=== PATIENT | female | born 1945 | race Asian ===

== ENCOUNTER 2017-11-05 11:04 | Outpatient (CLI) | payer MEDICAID, MEDICARE ==
[2017-11-05 12:47] LABS: CALCIUM 9.2 mg/dL (8.5-10.3)
== END 2017-11-05 11:05 ==
LOC: LAB.N 11:04
PROVIDERS: ATTEND Family Medicine
DX: I12.9 Hypertensive chronic kidney disease with stage 1 through stage 4 chronic kidney disease, or unspecified chronic kidney disease (principal); N18.3 Chronic kidney disease, stage 3 (moderate)
CPT/HCPCS: 36415; 80048

== ENCOUNTER 2018-11-17 08:00 | Outpatient (CLI) | payer MEDICARE ==
[2018-11-17 12:12] LABS: BASOPHILS % (AUTO) 0.6 %; EOSINOPHILS # (AUTO) 0.2 10^3/uL (0.0-0.7); EOSINOPHILS % (AUTO) 2.6 %; HGB - HEMOGLOBIN 13.3 g/dL (12.0-16.0); LYMPHOCYTES # (AUTO) 1.2 10^3/uL (1.5-3.5); LYMPHOCYTES % (AUTO) 18.8 %; MEAN CORPUSCULAR HEMOGLOBIN 28.8 pg (27.0-31.0); MEAN CORPUSCULAR HGB CONC 33.2 g/dL (32.0-36.0); MEAN CORPUSCULAR VOLUME 86.8 fL (81.0-99.0); MEAN PLATELET VOLUME 7.5 fL (7.9-10.8); MONOCYTES # (AUTO) 0.5 10^3/uL (0.0-1.0); MONOCYTES % (AUTO) 7.7 %; NEUTROPHILS # (AUTO) 4.4 10^3/uL (1.5-6.6); NEUTROPHILS % (AUTO) 70.3 %; PLT - PLATELET COUNT 232 10^3/uL (130-450); RED BLOOD COUNT 4.61 10^6/uL (4.20-5.40); RED CELL DISTRIBUTION WIDTH 13.5 % (12.0-15.0); WHITE BLOOD COUNT 6.3 x10^3/uL (4.8-10.8)
[2018-11-17 12:20] LABS: ALBUMIN/GLOBULIN RATIO 1.3 (1.0-2.2); ALKALINE PHOSPHATASE 83 IU/L (42-121); ALT ALANINE AMINOTRANSFERASE 20 IU/L (10-60); AST ASPARTATE AMINOTRANSFERASE 25 IU/L (10-42); BILIRUBIN,TOTAL 0.9 mg/dL (0.2-1.0); BUN - BLOOD UREA NITROGEN 21 mg/dL (6-20); CALCIUM 9.4 mg/dL (8.5-10.3); CARBON DIOXIDE - CO2 26 mmol/L (21-32); CHLORIDE 99 mmol/L (101-111); CHOL/HDL RATIO 2.6 (<4.4); CHOLESTEROL 157 mg/dL; GFR - MDRD 54 (>89); GLUCOSE 100 mg/dL (70-100); HDL CHOLESTEROL 60 mg/dL; LDL CHOLESTEROL,CALCULATED 83 mg/dL; LDL/HDL RATIO 1.4 (<4.4); SODIUM 136 mmol/L (135-145); TOTAL PROTEIN 7.2 g/dL (6.7-8.2); VLDL CHOLESTEROL 14 mg/dL
[2018-11-17 12:25] LABS: HB2 TOTAL 14.1 g/dL; HEMOGLOBIN A1C 0.66 g/dL; HEMOGLOBIN A1C % 6.4 % (4.6-6.2)
== END 2018-11-17 23:59 | disposition home or self-care (01) ==
LOC: LAB.N 08:00
PROVIDERS: ATTEND Nurse Practitioner Gerontology
DX: I12.9 Hypertensive chronic kidney disease with stage 1 through stage 4 chronic kidney disease, or unspecified chronic kidney disease (principal); N18.3 Chronic kidney disease, stage 3 (moderate); E78.5 Hyperlipidemia, unspecified; E11.65 Type 2 diabetes mellitus with hyperglycemia; E11.29 Type 2 diabetes mellitus with other diabetic kidney complication
CPT/HCPCS: 36415; 80053; 80061; 83036; 83721; 85025

== ENCOUNTER 2018-12-17 13:53 | Outpatient (CLI) | payer MEDICAID, MEDICARE ==
--- NOTE | 2018-12-18 16:54 | XRAY Report ---
Reason: HIP PAIN,LEFT Procedure Date: 12/17/2018 Accession Number: [id number] / [id number] Procedure: WCP - Hip w/Pelvis 2-3V LT CPT Code: FULL RESULT: EXAM: LEFT HIP RADIOGRAPHY EXAM DATE: 12/17/2018 02:07 PM. CLINICAL HISTORY: Left hip pain. Left groin pain. COMPARISON: None. TECHNIQUE: 2 views. FINDINGS: Bones: No acute fracture or bony lesion. Mild degenerative spurring. Joints: Mild joint space narrowing. Mild degenerative changes of the right hip joint and lower lumbar spine. Soft Tissues: Normal. No soft tissue swelling. IMPRESSION: 1. Mild degenerative changes of the left hip joint. RADIA
== END 2018-12-17 13:54 | disposition home or self-care (01) ==
LOC: DI.WCP 13:53
PROVIDERS: ATTEND Family Medicine
DX: M16.12 Unilateral primary osteoarthritis, left hip (principal)

== ENCOUNTER 2018-12-30 02:05 | Emergency (ER) | payer MEDICARE ==
--- NOTE | 2018-12-30 02:21 | ED Physician Documentation ---
History of Present Illness - Stated complaint Stated Complaint: DIZZY - History obtained from History obtained from: Patient, Family - History of Present Illness Timing: Enter time (01:00) Pain level max: 0 Pain level now: 0 Improved by: lying still Worsened by: movement of head, sitting up - Additonal information Additional information: woke from sleep at home at approximately 1 AM with dizziness. she is unable to further describe her symptom of dizziness (including not being able to describe it as spinning sensation versus lightheadedness or weakness, even when I discuss these as possible descriptors). she denies any other symptoms including headache, nausea, dyspnea, chest pain Review of Systems Constitutional: reports: Reviewed and negative Eyes: reports: Reviewed and negative Ears: reports: Reviewed and negative Cardiac: reports: Reviewed and negative Respiratory: reports: Reviewed and negative GI: reports: Reviewed and negative Neurologic: reports: Reviewed and negative PD PAST MEDICAL HISTORY - Past Medical History Cardiovascular: Hypertension, High cholesterol Endocrine/Autoimmune: Type 2 diabetes - Past Surgical History Past Surgical History: No - Present Medications Home Medications: Ambulatory Orders Medication Instructions Recorded Confirmed Amlodipine Besylate 10 mg PO DAILY 02/16/15 02/16/15 Aspirin 81 mg PO DAILY 02/16/15 02/16/15 Hydrochlorothiazide 25 mg PO DAILY 02/16/15 02/16/15 Indomethacin 25 mg PO DAILY 02/16/15 02/16/15 Losartan [Cozaar] 50 mg PO DAILY 02/16/15 02/16/15 Pravastatin Sodium 40 mg PO DAILY 02/16/15 02/16/15 metFORMIN [Glucophage] 500 mg PO DAILY 02/16/15 02/16/15 predniSONE [Prednisone] 20 mg PO DAILY 3 Days tablet 02/16/15 Meclizine [Antivert] 25 mg PO Q6H PRN #20 tablet 12/30/18 - Allergies Allergies/Adverse Reactions: Allergies Allergy/AdvReac Type Severity Reaction Status Date / Time No Known Drug Allergies Allergy Verified 12/30/18 02:26 - Social History Does the pt smoke?: No Smoking Status: Never smoker Does the pt drink ETOH?: No Does the pt have substance abuse?: No PD ED PE NORMAL - Vitals Vital signs reviewed: Yes - General General: Alert and oriented X 3, No acute distress (NAD at rest. lying still on stretcher, supine. 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, No motor deficit, No sensory deficit, Normal speech Eye Opening: Spontaneous Motor: Obeys Commands Verbal: Oriented GCS Score: 15 Results - Vitals Vitals: Oxygen O2 Source Room air - EKG (time done) No standard instances Rate: Rate (enter#) (60) Rhythm: NSR [place]: Normal Intervals: Normal [place] QRS: LVH Ischemia: Normal ST segments, Q waves (isolated III) - Labs Labs: Microbiology 12/30/18 04:00 Urine Culture - Final Urine,Clean Catch Less Than 10,000 COLONIES/ML UROGENITAL KWASI Laboratory Tests 12/30/18 12/30/18 12/30/18 02:25 02:25 02:25 WBC 9.1 RBC 3.74 L Hgb 10.4 L Hct 33.2 L MCV 88.8 MCH 27.8 MCHC 31.3 L RDW 13.0 Plt Count 310 MPV 8.4 Neut # (Auto) 7.2 H Lymph # (Auto) 1.1 L [place]lier # (Auto) 0.6 Eos # (Auto) 0.1 Baso # (Auto) 0.0 Absolute Nucleated RBC 0.00 Nucleated RBC % 0.0 Sodium 140 Potassium 4.3 Chloride 102 Carbon Dioxide 23 Anion Gap 15.0 H BUN 26 H Creatinine 1.0 Estimated GFR (MDRD) 54 L Glucose 124 H Calcium 9.5 Total Bilirubin 0.8 AST 19 ALT 22 Alkaline Phosphatase 85 Troponin I < 0.04 Total Protein 7.6 Albumin 3.4 Globulin 4.2 Albumin/Globulin Ratio 0.8 L Lipase 37 Urine Color Urine Clarity Urine pH Ur Specific [place] Urine Protein Urine Glucose (UA) Urine Ketones Urine Occult Blood Urine Nitrite Urine Bilirubin Urine Urobilinogen Ur Leukocyte Esterase Urine RBC Urine WBC Ur Squamous Epith Cells Urine Bacteria Ur Microscopic Review Urine Culture Comments 12/30/18 04:00 WBC RBC Hgb Hct MCV MCH MCHC RDW Plt Count MPV Neut # (Auto) Lymph # (Auto) [place]lier # (Auto) Eos # (Auto) Baso # (Auto) Absolute Nucleated RBC Nucleated RBC % Sodium Potassium Chloride Carbon Dioxide Anion Gap BUN Creatinine Estimated GFR (MDRD) Glucose Calcium Total Bilirubin AST ALT Alkaline Phosphatase Troponin I Total Protein Albumin Globulin Albumin/Globulin Ratio Lipase Urine Color YELLOW Urine Clarity CLEAR Urine pH 6.5 Ur Specific [place] <=1.005 Urine Protein NEGATIVE Urine Glucose (UA) NEGATIVE Urine Ketones NEGATIVE Urine Occult Blood NEGATIVE Urine Nitrite NEGATIVE Urine Bilirubin NEGATIVE Urine Urobilinogen 0.2 (NORMAL) Ur Leukocyte Esterase SMALL H Urine RBC None Seen Urine WBC 0-3 Ur Squamous Epith Cells RARE Squamous Urine Bacteria Rare Ur Microscopic Review INDICATED Urine Culture Comments INDICATED PD MEDICAL DECISION MAKING - ED course Complexity details: reviewed results, re-evaluated patient, considered differential, d/w patient, d/w family ED course: on reevaluation, test results d/w patient and family, she reports adequate relief after antivert and is able to converse with eyes open and head movement without apparent recurrence of symptoms Departure - Departure Disposition: 01 Home, Self Care Clinical Impression: Dizziness Condition: Good Health Concerns: dizziness Plan of Treatment: medication for dizziness as needed as prescribed Care Goals: symptom control Assessment: see diagnosis Instructions: ED Dizziness [facility] Follow-Up: Usha Mckeon DO [Primary Care Provider] - Prescriptions: Meclizine [Antivert] 25 mg PO Q6H PRN #20 tablet PRN Reason: Dizziness Discharge Date/Time: 12/30/18 05:15
[2018-12-30] MEDS ORDERED: MECLIZINE 12.5 MG TABLET PO STA (02:47)
[2018-12-30 02:55] LABS: BASOPHILS % (AUTO) 0.2 %; EOSINOPHILS # (AUTO) 0.1 10^3/uL (0.0-0.7); EOSINOPHILS % (AUTO) 1.2 %; HGB - HEMOGLOBIN 10.4 g/dL (12.0-16.0); LYMPHOCYTES # (AUTO) 1.1 10^3/uL (1.5-3.5); LYMPHOCYTES % (AUTO) 12.1 %; MEAN CORPUSCULAR HEMOGLOBIN 27.8 pg (27.0-31.0); MEAN CORPUSCULAR HGB CONC 31.3 g/dL (32.0-36.0); MEAN CORPUSCULAR VOLUME 88.8 fL (81.0-99.0); MEAN PLATELET VOLUME 8.4 fL (7.9-10.8); MONOCYTES # (AUTO) 0.6 10^3/uL (0.0-1.0); MONOCYTES % (AUTO) 6.8 %; NEUTROPHILS # (AUTO) 7.2 10^3/uL (1.5-6.6); NEUTROPHILS % (AUTO) 79.4 %; PLT - PLATELET COUNT 310 10^3/uL (130-450); RED BLOOD COUNT 3.74 10^6/uL (4.20-5.40); WHITE BLOOD COUNT 9.1 x10^3/uL (4.8-10.8)
[2018-12-30 03:06] LABS: ALBUMIN 3.4 g/dL (3.2-5.5); ALBUMIN/GLOBULIN RATIO 0.8 (1.0-2.2); BILIRUBIN,TOTAL 0.8 mg/dL (0.2-1.0); CALCIUM 9.5 mg/dL (8.5-10.3); TOTAL PROTEIN 7.6 g/dL (6.7-8.2)
--- NOTE | 2018-12-30 03:41 | CT Report ---
Reason: dizziness Procedure Date: 12/30/2018 Accession Number: [id number] / [id number] Procedure: CT - HEAD WO CPT Code: FULL RESULT: EXAM: CT HEAD EXAM DATE: 12/30/2018 03:06 AM. CLINICAL HISTORY: Dizziness. COMPARISON: None. TECHNIQUE: Multiaxial CT images were obtained from the foramen magnum to the vertex. Reformats: Sagittal and coronal. IV contrast: None. In accordance with CT protocol optimization, one or more of the following dose reduction techniques were utilized for this exam: automated exposure control, adjustment of mA and/or KV based on patient size, or use of iterative reconstructive technique. FINDINGS: Parenchyma: No intraparenchymal hemorrhage. No evidence of mass, midline shift, or CT findings of infarction. Riddle-white differentiation is distinct. Extraaxial Spaces: Normal for age. No subdural or epidural collections identified. Ventricles: Normal in size and position. Sinuses and Orbits: Imaged paranasal sinuses, orbits, and mastoids show no significant abnormality. Bones: No evidence of fracture or calvarial defect. Other: None. IMPRESSION: No acute intracranial process identified. RADIA
[2018-12-30 04:16] LABS: BILIRUBIN,URINE NEGATIVE (NEGATIVE); GLUCOSE, URINE (UA) NEGATIVE (NEGATIVE); KETONES,URINE (UA) NEGATIVE (NEGATIVE); LEUKOCYTE ESTERASE, URINE SMALL (NEGATIVE); NITRITE,URINE NEGATIVE (NEGATIVE); OCCULT BLOOD,URINE NEGATIVE (NEGATIVE); PH,URINE 6.5 PH (5.0-7.5); PROTEIN,URINE NEGATIVE (NEGATIVE); UROBILINOGEN,URINE 0.2 (NORMAL) E.U./dL (NORMAL)
[2018-12-30 04:26] LABS: CLARITY,URINE CLEAR (CLEAR)
[2018-12-30 04:27] LABS: BACTERIA,URINE Rare /HPF (None Seen); RBC,URINE None Seen /HPF (0-5); SQUAMOUS EPITHELIAL CELL,UR RARE Squamous (<= Few)
[2018-12-30 05:15] VITALS: BP 130/53
== END 2018-12-30 05:15 | disposition home or self-care (01) ==
LOC: ED 02:05
DX: R42 Dizziness and giddiness (principal); I10 Essential (primary) hypertension; E11.9 Type 2 diabetes mellitus without complications; Z79.84 Long term (current) use of oral hypoglycemic drugs; Z79.82 Long term (current) use of aspirin; M19.041 Primary osteoarthritis, right hand
CPT/HCPCS: 36415; 70450; 73130; 80053; 81001; 83690; 84484; 84550; 85025; 85651; 86038; 86140; 86200; 86430; 87086; 93005; 99284; A9270; 81003

== ENCOUNTER 2018-12-30 09:27 | Outpatient (CLI) | payer MEDICARE ==
[2018-12-30 16:06] LABS: RHEUMATOID FACTOR NEGATIVE (Negative)
[2019-01-01 13:42] LABS: ANA SCREEN NEGATIVE (NEGATIVE)
== END 2018-12-30 23:59 | disposition home or self-care (01) ==
LOC: LAB.N 09:27
PROVIDERS: ATTEND Family Medicine
DX: M79.641 Pain in right hand (principal)
CPT/HCPCS: 36415; 84550; 85651; 86038; 86140; 86200; 86430

== ENCOUNTER 2018-12-30 09:37 | Outpatient (CLI) | payer MEDICARE ==
--- NOTE | 2018-12-30 13:55 | XRAY Report ---
Reason: JOINT PAIN Procedure Date: 12/30/2018 Accession Number: [id number] / [id number] Procedure: XRN - Hand 3 View RT CPT Code: FULL RESULT: EXAM: RIGHT HAND RADIOGRAPHY EXAM DATE: 12/30/2018 09:55 AM. CLINICAL HISTORY: Joint pain. Chronic pain, worse last 8 days. COMPARISON: None. TECHNIQUE: 3 views. FINDINGS: Bones: Normal. No fractures or bone lesions. Joints: There is joint space narrowing with osseous proliferation in the interphalangeal joints proximally and distally without osseous destruction; marginal osteophytosis is also seen. Mild degenerative changes are also seen at the first carpometacarpal articulation. No subluxation. Soft Tissues: Normal. No soft tissue swelling. IMPRESSION: Osteoarthrosis. RADIA
== END 2018-12-30 09:38 | disposition home or self-care (01) ==
LOC: DI.N 09:37
PROVIDERS: ATTEND Family Medicine
DX: M19.041 Primary osteoarthritis, right hand (principal)

== ENCOUNTER 2019-01-20 14:26 | Outpatient (CLI) | payer MEDICARE ==
[2019-01-20 19:31] LABS: CALCIUM 9.4 mg/dL (8.5-10.3)
[2019-01-20 20:26] LABS: HB2 TOTAL 10.4 g/dL; HEMOGLOBIN A1C 0.41 g/dL; HEMOGLOBIN A1C % 5.8 % (4.6-6.2)
[2019-01-20 20:32] LABS: CREATININE,URINE 18.3 mg/dL; MICROALBUMIN,URINE < 0.2 mg/dL (0-300.0)
== END 2019-01-20 23:59 | disposition home or self-care (01) ==
LOC: LAB.N 14:26
PROVIDERS: ATTEND Family Medicine
DX: E11.29 Type 2 diabetes mellitus with other diabetic kidney complication (principal)
CPT/HCPCS: 36415; 80048; 82043; 82570; 83036

== ENCOUNTER 2019-05-22 09:15 | Outpatient (CLI) | payer MEDICARE ==
[2019-05-22 12:05] LABS: BASOPHILS % (AUTO) 0.5 %; EOSINOPHILS # (AUTO) 0.1 10^3/uL (0.0-0.7); EOSINOPHILS % (AUTO) 2.1 %; HGB - HEMOGLOBIN 11.9 g/dL (12.0-16.0); LYMPHOCYTES % (AUTO) 15.9 %; MEAN CORPUSCULAR HGB CONC 31.7 g/dL (32.0-36.0); MEAN PLATELET VOLUME 9.5 fL (7.9-10.8); MONOCYTES # (AUTO) 0.4 10^3/uL (0.0-1.0); MONOCYTES % (AUTO) 6.9 %; NEUTROPHILS # (AUTO) 4.6 10^3/uL (1.5-6.6); NEUTROPHILS % (AUTO) 74.4 %; PLT - PLATELET COUNT 242 10^3/uL (130-450); RED BLOOD COUNT 4.41 10^6/uL (4.20-5.40); RED CELL DISTRIBUTION WIDTH 14.2 % (12.0-15.0); WHITE BLOOD COUNT 6.2 x10^3/uL (4.8-10.8)
[2019-05-22 12:21] LABS: BUN - BLOOD UREA NITROGEN 24 mg/dL (6-20); CALCIUM 9.5 mg/dL (8.5-10.3); CARBON DIOXIDE - CO2 28 mmol/L (21-32); CHLORIDE 102 mmol/L (101-111); CREATININE 1.1 mg/dL (0.4-1.0); GFR - MDRD 48 (>89); GLUCOSE 114 mg/dL (70-100); SODIUM 139 mmol/L (135-145)
[2019-05-22 13:49] LABS: CHOL/HDL RATIO 2.4 (<4.4); CHOLESTEROL 141 mg/dL; HDL CHOLESTEROL 59 mg/dL; LDL CHOLESTEROL,CALCULATED 63 mg/dL; LDL/HDL RATIO 1.1 (<4.4); VLDL CHOLESTEROL 19 mg/dL
== END 2019-05-22 23:59 | disposition home or self-care (01) ==
LOC: LAB.N 09:15
PROVIDERS: ATTEND Internal Medicine Cardiovascular Disease
DX: I10 Essential (primary) hypertension (principal); E78.5 Hyperlipidemia, unspecified
CPT/HCPCS: 36415; 80048; 80061; 82088; 83721; 84244; 85025

== ENCOUNTER 2020-02-09 10:14 | Outpatient (CLI) | payer MEDICARE ==
[2020-02-09 11:42] LABS: BASOPHILS % (AUTO) 0.5 %; EOSINOPHILS # (AUTO) 0.1 10^3/uL (0.0-0.7); EOSINOPHILS % (AUTO) 1.8 %; HGB - HEMOGLOBIN 13.8 g/dL (12.0-16.0); LYMPHOCYTES # (AUTO) 1.2 10^3/uL (1.5-3.5); LYMPHOCYTES % (AUTO) 21.7 %; MEAN CORPUSCULAR HEMOGLOBIN 30.2 pg (27.0-31.0); MEAN CORPUSCULAR HGB CONC 33.5 g/dL (32.0-36.0); MEAN CORPUSCULAR VOLUME 90.2 fL (81.0-99.0); MEAN PLATELET VOLUME 9.4 fL (7.9-10.8); MONOCYTES # (AUTO) 0.4 10^3/uL (0.0-1.0); MONOCYTES % (AUTO) 7.9 %; NEUTROPHILS # (AUTO) 3.8 10^3/uL (1.5-6.6); NEUTROPHILS % (AUTO) 67.7 %; PLT - PLATELET COUNT 211 10^3/uL (130-450); RED BLOOD COUNT 4.57 10^6/uL (4.20-5.40); RED CELL DISTRIBUTION WIDTH 12.8 % (12.0-15.0); WHITE BLOOD COUNT 5.5 x10^3/uL (4.8-10.8)
[2020-02-09 12:12] LABS: ALBUMIN 4.4 g/dL (3.2-5.5); ALBUMIN/GLOBULIN RATIO 1.6 (1.0-2.2); ALKALINE PHOSPHATASE 82 IU/L (42-121); ALT ALANINE AMINOTRANSFERASE 29 IU/L (10-60); AST ASPARTATE AMINOTRANSFERASE 29 IU/L (10-42); BILIRUBIN,TOTAL 1.1 mg/dL (0.2-1.0); BUN - BLOOD UREA NITROGEN 13 mg/dL (6-20); CALCIUM 9.8 mg/dL (8.5-10.3); CARBON DIOXIDE - CO2 27 mmol/L (21-32); CHLORIDE 102 mmol/L (101-111); CHOL/HDL RATIO 3.9 (<4.4); CHOLESTEROL 219 mg/dL; CREATININE 1.1 mg/dL (0.4-1.0); GLUCOSE 116 mg/dL (70-100); HDL CHOLESTEROL 56 mg/dL; LDL CHOLESTEROL,CALCULATED 121 mg/dL; LDL/HDL RATIO 2.2 (<4.4); SODIUM 139 mmol/L (135-145); TOTAL PROTEIN 7.2 g/dL (6.7-8.2); VLDL CHOLESTEROL 42 mg/dL
[2020-02-09 12:27] LABS: CREATININE,URINE 153.8 mg/dL; MICROALBUMIN,URINE 10.3 mg/dL (0-300.0)
[2020-02-09 14:00] LABS: HEMOGLOBIN A1c% 6.1 % (4.27-6.07)
== END 2020-02-09 23:59 | disposition home or self-care (01) ==
LOC: LAB.WCP 10:14
PROVIDERS: ATTEND Family Medicine
DX: E11.29 Type 2 diabetes mellitus with other diabetic kidney complication (principal); I10 Essential (primary) hypertension; E78.5 Hyperlipidemia, unspecified
CPT/HCPCS: 36415; 80053; 80061; 82043; 82570; 83036; 83721; 84443; 85025

== ENCOUNTER 2020-07-13 08:00 | Outpatient (CLI) | payer MEDICARE ==
[2020-07-13 18:20] LABS: CREATININE,URINE 67.6 mg/dL; MICROALBUM/CREATININE RATIO,UR 20.7 ug/mg (<30.0); MICROALBUMIN,URINE 1.4 mg/dL (0-300.0)
[2020-07-13 18:37] LABS: HEMOGLOBIN A1c% 6.2 % (4.27-6.07)
[2020-07-13 18:49] LABS: BASOPHILS % (AUTO) 0.6 %; EOSINOPHILS # (AUTO) 0.1 10^3/uL (0.0-0.7); EOSINOPHILS % (AUTO) 2.7 %; HGB - HEMOGLOBIN 13.1 g/dL (12.0-16.0); LYMPHOCYTES % (AUTO) 21.2 %; MEAN CORPUSCULAR HEMOGLOBIN 29.8 pg (27.0-31.0); MEAN CORPUSCULAR HGB CONC 32.3 g/dL (32.0-36.0); MEAN PLATELET VOLUME 10.3 fL (7.9-10.8); MONOCYTES # (AUTO) 0.4 10^3/uL (0.0-1.0); MONOCYTES % (AUTO) 7.8 %; NEUTROPHILS # (AUTO) 3.3 10^3/uL (1.5-6.6); NEUTROPHILS % (AUTO) 67.5 %; PLT - PLATELET COUNT 213 10^3/uL (130-450); RED CELL DISTRIBUTION WIDTH 12.8 % (12.0-15.0); WHITE BLOOD COUNT 4.9 x10^3/uL (4.8-10.8)
[2020-07-13 19:07] LABS: ALBUMIN 4.3 g/dL (3.2-5.5); ALBUMIN/GLOBULIN RATIO 1.7 (1.0-2.2); ALKALINE PHOSPHATASE 85 IU/L (42-121); ALT ALANINE AMINOTRANSFERASE 40 IU/L (10-60); AST ASPARTATE AMINOTRANSFERASE 32 IU/L (10-42); BILIRUBIN,TOTAL 0.9 mg/dL (0.2-1.0); BUN - BLOOD UREA NITROGEN 22 mg/dL (6-20); CALCIUM 9.4 mg/dL (8.5-10.3); CARBON DIOXIDE - CO2 25 mmol/L (21-32); CHLORIDE 105 mmol/L (101-111); CHOL/HDL RATIO 3.4 (<4.4); CHOLESTEROL 208 mg/dL; CREATININE 1.1 mg/dL (0.4-1.0); GLUCOSE 111 mg/dL (70-100); HDL CHOLESTEROL 62 mg/dL; LDL CHOLESTEROL,CALCULATED 119 mg/dL; LDL/HDL RATIO 1.9 (<4.4); TOTAL PROTEIN 6.9 g/dL (6.7-8.2); URIC ACID 9.3 mg/dL (2.6-7.2); VLDL CHOLESTEROL 27 mg/dL
== END 2020-07-13 23:59 | disposition home or self-care (01) ==
LOC: LAB.WCP 08:00
PROVIDERS: ATTEND Internal Medicine
DX: I12.9 Hypertensive chronic kidney disease with stage 1 through stage 4 chronic kidney disease, or unspecified chronic kidney disease (principal); R73.03 Prediabetes; M10.9 Gout, unspecified
CPT/HCPCS: 36415; 80053; 80061; 82043; 82570; 83036; 83721; 84443; 84550; 85025

== ENCOUNTER 2021-09-05 09:17 | Outpatient (CLI) | payer MEDICARE, OTHER ==
[2021-09-05 12:30] LABS: ESTIMATED AVERAGE GLUCOSE 154 mg/dL (70-100)
[2021-09-05 12:32] LABS: ALT ALANINE AMINOTRANSFERASE 51 IU/L (10-60); BUN - BLOOD UREA NITROGEN 16 mg/dL (6-20); CALCIUM 9.5 mg/dL (8.5-10.3); CARBON DIOXIDE - CO2 27 mmol/L (21-32); CHLORIDE 101 mmol/L (101-111); CHOL/HDL RATIO 4.8 (<4.4); CHOLESTEROL 230 mg/dL; CREATININE 1.1 mg/dL (0.4-1.0); GFR - MDRD 48 (>89); GLUCOSE 145 mg/dL (70-100); HDL CHOLESTEROL 48 mg/dL; LDL CHOLESTEROL,CALCULATED 145 mg/dL; POTASSIUM 4.4 mmol/L (3.5-5.0); SODIUM 138 mmol/L (135-145); TRIGLYCERIDES 184 mg/dL; URIC ACID 8.6 mg/dL (2.6-7.2); VLDL CHOLESTEROL 37 mg/dL
== END 2021-09-05 09:18 | disposition home or self-care (01) ==
LOC: LAB.N 09:17
PROVIDERS: ATTEND Internal Medicine
DX: E78.5 Hyperlipidemia, unspecified (principal); R73.03 Prediabetes; M10.9 Gout, unspecified
CPT/HCPCS: 36415; 80048; 80061; 83036; 83721; 84460; 84550

== ENCOUNTER 2023-05-16 10:11 | Outpatient (CLI) | payer MEDICARE, MEDICAID ==
[2023-05-16 18:13] LABS: CALCIUM 10.2 mg/dL (8.5-10.3); CREATININE 1.1 mg/dL (0.6-1.3); POTASSIUM 4.7 mmol/L (3.5-4.5); URIC ACID 8.5 mg/dL (2.3-6.6)
[2023-05-16 21:12] LABS: ESTIMATED AVERAGE GLUCOSE 140 mg/dL (70-100); HEMOGLOBIN A1c% 6.5 % (4.27-6.07)
== END 2023-05-16 10:12 | disposition home or self-care (01) ==
LOC: LAB.N 10:11
PROVIDERS: ATTEND Internal Medicine
DX: E11.9 Type 2 diabetes mellitus without complications (principal); M10.9 Gout, unspecified
CPT/HCPCS: 36415; 80048; 83036; 84550

== ENCOUNTER 2023-06-01 11:47 | Outpatient (CLI) | payer MEDICARE, MEDICAID ==
--- NOTE | 2023-06-01 19:42 | XRAY Report ---
PROCEDURE: Lumbar Spine 2 View INDICATIONS: PIRIFORMIS SYNDROME,RIGHT TECHNIQUE: 2 views of the lumbar spine were acquired. COMPARISON: None. FINDINGS: Bones: 5 [id number]-[id number] vertebrae are present. Mild straightening of the normal lumbar lordosis. N o vertebral body compression fractures. No suspicious bony lesions. Generalized osteopenia. Multile gogo disc space narrowing degenerative endplate changes are seen and there is multilevel facet hypertr ophy. Soft tissues: Overlying bowel gas pattern is normal. Aortic atherosclerotic calcifications. IMPRESSION: Moderate multilevel spondylosis. Reviewed by: Gil Foss MD on 06/01/2023 7:41 PM PST Approved by: Gil Foss MD on 06/01/2023 7:41 PM PST Station ID: [id number]
== END 2023-06-01 11:48 | disposition home or self-care (01) ==
LOC: DI 11:47
PROVIDERS: ATTEND Internal Medicine
DX: G57.01 Lesion of sciatic nerve, right lower limb (principal); M47.816 Spondylosis without myelopathy or radiculopathy, lumbar region